=== PATIENT | male | born 1940 | race Caucasian/White ===

== ENCOUNTER 2024-03-09 22:46 | Inpatient (IN) | payer MEDICARE, OTHER, SELFPAY ==
[2024-03-09 16:15] VITALS: BP 144/71
[2024-03-09 16:59] LABS: % Basophils 0.3 % (0-2); % Eosinophils 0.5 % (0-6); % Immature Granulocytes 0.4 % (0-0.5); % Lymphocytes 8.1 % (20.5-51.1); % Monocytes 4.3 % (1.7-9.3); % Neutrophils 86.4 % (42.2-75.2); Absolute Eosinophils 0.1 10^3/uL (0-0.7); Absolute Immature Granulocytes 0.1 10^3/uL (0-0.05); Absolute Lymphocytes 0.9 10^3/uL (1.2-3.4); Absolute Monocytes 0.5 10^3/uL (0.1-0.6); Absolute Neutrophils 9.9 10^3/uL (1.4-6.5); Hematocrit 36.2 % (39.0-52.0); Hemoglobin 12.6 g/dL (13.0-18.0); Mean Corp Hgb Conc. 34.8 g/dL (33.0-37.0); Mean Corpuscular Hgb 32.7 pg (27.0-31.0); Mean Platelet Volume 11.1 fL (7.4-10.4); Nucleated Red Blood Cells % 0 % (-); Platelet Count 155 10^3/uL (130-400); Red Blood Cell Count 3.85 10^6/uL (4.70-6.10); Red Cell Dist. Width 13.6 % (11.5-14.5); White Blood Cell Count 11.5 10^3/uL (4.8-10.8)
[2024-03-09 17:05] LABS: COVID-19 Antigen Negative (Negative)
[2024-03-09 17:22] LABS: Troponin I < 0.012 ng/ml
[2024-03-09 17:37] LABS: ALT (SGPT) < 10 U/L (0-50); AST (SGOT) 35 U/L (17-59); Albumin 3.8 g/dl (3.5-5.0); Alkaline Phosphatase 116 U/L (38-126); Blood Urea Nitrogen 25 mg/dl (9-20); Carbon Dioxide 27 mmol/L (22-30); Chloride 102 mmol/L (98-107); Glucose 152 mg/dl (70-99); Potassium 3.5 mmol/L (3.5-5.1); Sodium 139 mmol/L (135-145); Total Bilirubin 0.9 mg/dl (0.2-1.3); Total Protein 6.6 g/dl (6.3-8.2); eGFR 45.34
[2024-03-09 19:20] VITALS: BMI 24.6
[2024-03-09 19:28] VITALS: BP 162/71
--- NOTE | 2024-03-09 19:42 | ED.GENMED ---
History of Present Illness
General
Chief Complaint: Cold/Flu/URI Symptoms
Source: patient and spouse
Exam Limitations: none
Time Seen by Provider: 03/09/24 19:24
Nursing documentation reviewed up to this point in time: agreed with
History of Present Illness
History of Present Illness:
83-year-old male cough congestion fever fatigue for a month decreased p.o. intake [facility] today he had increased symptoms of brought to the ER no vomiting, no abdominal pain, states he has a
history of COPD states has had thick productive sputum
Past History
Past History
ED Past Medical History: COPD, GERD, HTN, Hypercholesterolemia, Other (Parkinson's, osteoarthritis, obstructive sleep apnea, tinnitus, chronic kidney disease) and Other (chronic bronchitis, mitral valve regurg)
ED Past Surgical History: Appendectomy, Orthopedic (bilateral hip replacements 2011) and Other (herniorrhaphy, cataract extraction, lumbar epidural steroid injection, cystoscopy)
Social History
Tobacco: Former smoker
Alcohol: Occasional
Drug: None
Personal: Other (Significant other Common law marrage)
Living: with family
Employment: Employed
Family History
Family History: Other (reviewed and non-contributory)
Review of Systems
Review of Systems
All Other Systems: Not applicable
Constitutional: Reports fever and fatigue
Respiratory: Reports cough and trouble breathing
Cardiac: Reports no symptoms
: Reports no symptoms
Musculoskeletal: Reports no symptoms
Phy Exam
Physical Exam
Physical Exam:
Physical Exam
General: Elderly male mild distress low-grade fever cough
Neck: Lips are dry
Heart: Regular
Lungs: Rhonchi right greater than
Abdomen: Not
Neuro: alert and oriented. no focal neurological deficits
Skin: no rash
Psychiatric: well kept. interactive and cooperative
Extremities: No calf pain noted
Course
Orders/Labs/Results
Orders:
Orders
03/09/24 16:19
ECG [Electrocardiogram (*1)] Urgent
Reason for Study: Chest Pain
EKG- Treatment ONCE
03/09/24 16:25
Complete Blood Count/With Diff Urgent
Comprehensive Metabolic Panel Urgent
Troponin I Urgent
Blood Culture Urgent
BHARAT Source: Blood/Venous
Specimen Description:
Date Specimen was Collected: 03/09/24
Time Specimen was Collected: 16:19
Influenza A+B Rapid Molecular Urgent
BHARAT Source: Nasal Swab
Specimen Description:
Date Specimen was Collected: 03/09/24
Time Specimen was Collected: 16:19
03/09/24 16:27
COVID-19 Antigen Urgent
Source: Nasal Swab
03/09/24 19:28
Ipratropium/Albuterol Sulfate [Duoneb] 3 ml INH R NOW STA
03/09/24 19:29
0.9% Sodium Chloride 1000 ml [Nss] 1,000 ml IV BOLUS
Acetaminophen [Tylenol] 650 mg PO NOW STA
Dexamethasone Sod Phosphate [Decadron] 10 mg IV NOW STA
CR Chest - 2 Views Urgent
Comment:
Reason For Exam: sob
03/09/24 20:51
CefTRIAXone [Rocephin] 1,000 mg IV NOW STA
Abnormal Lab Results
03/09/24
16:25
WBC 11.5 H 10^3/uL
(4.8-10.8)
RBC 3.85 L 10^6/uL
(4.70-6.10)
Hgb 12.6 L g/dL
(13.0-18.0)
Hct 36.2 L %
(39.0-52.0)
MCH 32.7 H pg
(27.0-31.0)
MPV 11.1 H fL
(7.4-10.4)
Abs Immat Gran (auto) 0.1 H 10^3/uL
(0-0.05)
Absolute Neuts (auto) 9.9 H 10^3/uL
(1.4-6.5)
Absolute Lymphs (auto) 0.9 L 10^3/uL
(1.2-3.4)
Neutrophils % 86.4 H %
(42.2-75.2)
Lymphocytes % 8.1 L %
(20.5-51.1)
BUN 25 H mg/dl
(9-20)
Creatinine 1.5 H mg/dL
(0.7-1.3)
Glucose 152 H mg/dl
(70-99)
03/09/24 16:25
03/09/24 16:25
Vital Signs
Initial and Last Documented VS:
Initial Vital Signs
Temp Pulse Resp BP Pulse Ox
100.1 F 94 20 144/71 99
03/09/24 16:15 03/09/24 16:15 03/09/24 16:15 03/09/24 16:15 03/09/24 16:15
Last Documented Vital Signs
Temp Pulse Resp BP Pulse Ox
100.1 F 82 14 162/71 97
03/09/24 16:15 03/09/24 19:45 03/09/24 19:45 03/09/24 19:28 03/09/24 19:45
MDM/Problems Addressed
Differential Diagnosis Includes:
Pneumonia bronchitis aspiration viral syndrome
MDM/Problems Addressed:
Cough shortness of breath fever
Chronic conditions affecting care: COPD and Neurological disorder
Acute Exacerbation and/or Progression of Chronic Illness: COPD and Neurological disorder
*Radiology
Radiology exam reviewed: preliminary read by ED provider
*Pulse Oximetry
Patient hypoxic: no
*EKG
Interpreted by ED Provider?: Yes
Interpretation: abnormal
Comparison EKG: no comparison EKG present
Heart Rate: 88
Rate: normal
Rhythm: sinus
Ischemia: non-specific ST changes
*Teller Coordinator Interpretation
Rate: tachycardiac
Interpretation: abnormal
Heart Rate: 110
Rhythm: sinus
*Critical Care Note
Total Time (30-74mins, 75-104mins- exclusive of procedures): Not Applicable
Update Note
Update Note:
9 PM chest x-ray noted labs noted patient states he is feeling better, review labs and chest x-ray with him insisted that he be admitted she is concerned is not getting care that he needs at his facility
ED Attending Note
-
Portions of this chart may have been created with voice recognition software.� Occasional wrong word or��sound alike� substitutions may have occurred due to the inherent limitations of voice recognition software.
Discharge Plan
Departure
Patient Disposition: Admit
Date of Disposition: 03/09/24
Time of Disposition: 21:05
Admit to: Med/Surg
Presentation/result/management discussed w/ accepting MD/DO: Hospitalist
Patient with high blood pressure during this ER visit?: No
Condition: Good
Discharge Problem:
COPD exacerbation
Prescriptions:
No Action
quetiapine 25 MG tablet
100 mg PO HS
quetiapine 25 MG tablet
25 mg PO DAILY
sertraline 50 MG tablet
50 mg PO DAILY
fludrocortisone 0.1 MG tablet
0.1 mg PO DAILY Qty: 30 0RF
acetaminophen 325 mg Tablet
650 mg PO Q4HPRN PRN (Reason: mild pain/fever)
permethrin 5 % Cream
1 applic TOPICAL TU@1830
magnesium hydroxide 400 mg/5 mL Suspension
2,400 mg PO DAILYPRN PRN (Reason: constipation)
tamsulosin 0.4 mg Capsule
0.8 mg PO QPM
bisacodyl [Dulcolax (bisacodyl)] 10 mg Suppository
10 mg [place] DAILY PRN (Reason: if no bm aftr mom)
fluticasone propionate 50 mcg/actuation [place],Suspension
1 spray INTRANASAL BID
rivastigmine tartrate 3 mg Capsule
3 mg PO BID
carbidopa-levodopa 25-100 mg Tablet Extended Release
1 tab PO QID
polyethylene glycol 3350 17 GRAMS powder in packet
17 grams PO QPM
prednisone 20 mg Tablet
40 mg PO DAILY 5 Days Qty: 10 0RF
Referrals:
UNKNOWN - PT DOES,NOT KNOW [Family Provider] -
Interventions
Interventions:
*Risk Screen - Suicide Last Done: 03/09/24 19:20
*General Assessment Last Done: 03/09/24 19:20
ED- Fall Risk Assessment Last Done: 03/09/24 19:20
*ED COVID-19 Vaccine History Last Done: 03/09/24 19:20
ED- Pulmonary Assessment Last Done: 03/09/24 19:20
Discharge Date and Time
Print Language: ALBANIAN
[2024-03-09] MEDS: DECADRON 10 MG IV (19:51)
[2024-03-09] MEDS: TYLENOL 650 MG PO (19:51)
[2024-03-09] MEDS: DUONEB 3 ML INH (19:51)
[2024-03-09] MEDS: NSS 1000 IV (19:52)
[2024-03-09 20:00] VITALS: BP 143/88
[2024-03-09 21:01] VITALS: BP 138/55
[2024-03-09] MEDS: ROCEPHIN 1000 MG IV (21:33)
[2024-03-09] MEDS: VIBRAMYCIN 100 MG PO (21:33)
--- NOTE | 2024-03-09 21:58 | HPS.HSE ---
Family Physician
-
Family Physician: NOT KNOW UNKNOWN - PT DOES
Chief Complaint
-
cough and congestion , poor POs
History of Present Illness
I could not get any information from the patient as he has dementia
Information gathered by chart review and speaking with the ER staff.
83M NH Res, HX Dementia , COPD, CKD3, HTN seen at ER for evalaution of cough and congestion:
HX mainly from
- concerns with fatigue, poor PO for few weeks at NH
- also she noted worsening cough and congestion
- thick productive sputum per spouse
- T 100 at ER , not tachypnic
- 2 episdoe of POx 8s but improved to 90s on RA
- POS rochi in both lungs Rt > Lt
At ER
- DuoNeb x1
- IV Decdron 10 mg
- IV CFTX and PO Doxy
Medical History
Past Medical History
Past Medical History: Reports Other
Additional Past Medical History:
GERD, hypertension, hyperlipidemia, sleep apnea, CKD, mitral regurgitation, arthritis, parkinson,
Past Surgical History: Reports Other
Additional Past Surgical History:
b/l hip replacement
appendectomy
Social History
Tobacco: Former Smoker
Alcohol: None
Drug: None
Living: Shelter
Family History
Family History: Not pertinent
Allergies / Home Medications
Allergies reflects when Allergies were last updated in [employer].
Home Medications with original date entered in [employer]
Allergy/Medication List:
Allergies
Allergy/AdvReac Type Severity Reaction Status Date / Time
No Known Allergies Allergy Verified 03/10/22 12:13
Home Medications
quetiapine 25 mg tablet 25 mg PO DAILY Mental Health/Anxiety 12/07/21
quetiapine 25 mg tablet 100 mg PO HS Mental Health/Anxiety 12/07/21
sertraline 50 mg tablet 50 mg PO DAILY Mental Health/Anxiety 12/07/21
fludrocortisone 0.1 mg tablet 0.1 mg PO DAILY #30 tabs 02/02/22
acetaminophen 325 mg tablet 650 mg PO Q4HPRN PRN mild pain/fever 08/27/23
bisacodyl 10 mg rectal suppository (Dulcolax (bisacodyl)) 10 mg [place] DAILY PRN if no bm aftr mom 08/27/23
carbidopa ER 25 mg-levodopa 100 mg tablet,extended release 1 tab PO QID 08/27/23
fluticasone propionate 50 mcg/actuation nasal spray,suspension 1 spray intranasal BID 08/27/23
magnesium hydroxide 400 mg/5 mL oral suspension 2,400 mg PO DAILYPRN PRN constipation 08/27/23
permethrin 5 % topical cream 1 applic topical TU@1830 08/27/23
polyethylene glycol 3350 17 gram oral powder packet 17 grams PO QPM 08/27/23
rivastigmine tartrate 3 mg capsule 3 mg PO BID 08/27/23
tamsulosin 0.4 mg capsule 0.8 mg PO QPM 08/27/23
Review of Systems
-
Constitutional: Reports No Symptoms
EENT: Reports No Symptoms
Respiratory: Reports Cough and Other (congestion and thick productive sputum )
Cardiac: Reports No Symptoms
Abdomen/GI: Reports No Symptoms
: Reports No Symptoms
Musculoskeletal: Reports No Symptoms
Skin: Reports Rash
Neurological: Reports No Symptoms
Endocrine: Reports No Symptoms
Hematologic/Lymphatic: Reports No Symptoms
Psych: Reports No Symptoms
Physical Exam
Vital Signs
Vital Signs
Temp Pulse Resp BP Pulse Ox
100.1 F 86 18 138/55 97
03/09/24 16:15 03/09/24 21:30 03/09/24 21:30 03/09/24 21:01 03/09/24 21:01
Physical Exam
General: Well Developed, Well Nourished and No Apparent Distress
HEENT: NormoCephalic and Atraumatic; No Moist mucous membranes (dry lipss )
Respiratory: Other (reduced symmetric air entry but no additiona BS on my exam )
Cardiac: S1/S2 and Regular Rhythm; No Murmur or Rub
GI: Soft, Non Tender, Non Distended and Normal Bowel Sounds; No Organomegaly
Rectal: Deferred by Provider
Musculoskeletal: No Clubbing, No Cyanosis and No Edema
Skin: Rash (diffuse maculo papular rash)
Neuro: Awake, Alert and Nonfocal/grossly intact
Psych: Calm and Confused
Laboratory Results
-
03/09/24 16:25
03/09/24 16:25
Laboratory Results
Total Bilirubin 0.9 mg/dl (0.2-1.3) 03/09/24 16:25
AST 35 U/L (17-59) 03/09/24 16:25
ALT < 10 U/L (0-50) 03/09/24 16:25
Alkaline Phosphatase 116 U/L (38-126) 03/09/24 16:25
Troponin I < 0.012 ng/ml 03/09/24 16:25
Data Reviewed
-
Diagnostic Radiology: Report Reviewed by me
Medical Tests (Nuc Med, Echo, EKG etc): Report Reviewed by me
Lab Data: Labs Reviewed by me
Old Records: Reviewed
Impression/Plan
-
Reviewed VS:T 100.1 RR 20s POx 98, 82,97 on RA
Data
WCC 11.5
Hgb 12.6
Cr 1.5 - baseline Cr 1.1
eGFR 45
NEG TPNI
NEG Covid NEG Flu A & B
BCx sent
CXR : No acute cardiopulmonary process.
EKG
NORMAL SINUS RHYTHM
NONSPECIFIC ST AND T WAVE ABNORMALITY
ABNORMAL ECG
WHEN COMPARED WITH ECG OF 25-DONTRELL-2022 12:55,
NONSPECIFIC T WAVE ABNORMALITY NOW EVIDENT IN LATERAL LEADS
Last hospitalist admission: 08/27 - 08/29/23 PDX: Altered mental status likely secondary to worsening of dementia
ASSESSMENT & PLAN
Pending Rx reconciliation
low grade fever with leucocytosis - acute viral vs bacterial infection - unclear source
- NEG Covid, NEG flu, NEG CXR
- check PCT
- check UA
HX COPD suspect Flare with episode of hypoxia
Decreased symmetric AE but not wheezy or rhonchi on judicial administrative assistant exam
- NEG CXR
- Hold ABx till PCT available
- IV Decadron 4 mg q12h
- Duo Neg qid and PRN
- Keep POx > 94
Weakens and general debility ? deconditioning vs progressive Parkinson dz
HX Parkinson dz with dementia
Chronic Ambulatory dysfunction
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
- PT/OT
- on rivastigmine
- carbidopa-levodopa continued
Chronic Mood disorder
- on Seroquel, sertraline
BPH
- on Flomax
DVT Px: LMWH
Code: DNR confirmed by spouse at bed side
IP MS
[2024-03-09 22:00] VITALS: BP 134/84
[2024-03-09 22:48] LABS: Procalcitonin 0.68 ng/ml (0.0-0.25)
[2024-03-09 23:00] VITALS: BP 151/66
[2024-03-10] VITALS (9 sets, daily range): BP systolic 115–179; BP diastolic 55–82; PULSE 80; O2SAT 98; BMI 24.2
--- NOTE | 2024-03-10 00:20 | PTCARENOTE ---
Received patient from ED into room 0. at bedside. Patient resting comfortably in bed, asleep. answered admission questions. Pt confused/forgetful. Bed alarm initiated. Rhonchi auscultated in b/l lungs. See assessment. Call marcus within
reach, safe environment maintained.
[2024-03-10] MEDS: DUONEB 3 ML INH ×4 (07:32→19:18)
[2024-03-10] MEDS: EXELON 3 MG PO ×2 (08:23→21:01)
[2024-03-10] MEDS: SEROQUEL 25 MG PO (08:23)
[2024-03-10] MEDS: SINEMET CR 25-100 (EXTENDED RELEASE) 1 TABLET PO ×4 (08:23→21:01)
[2024-03-10] MEDS: DECADRON 4 MG IV (08:24)
[2024-03-10] MEDS: ZOLOFT 50 MG PO (08:24)
[2024-03-10] MEDS: FLORINEF 0.100000000000000006 MG PO (08:24)
--- NOTE | 2024-03-10 09:30 | CM ---
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 The patient resides at [facility] and is wheelchair bound. Patient requires assistance with ADLs. CM continues to be
available to patient/family and is monitoring medical plan for needs at discharge.
Plan: Discharge back to [facility] when medically stable.
--- NOTE | 2024-03-10 13:46 | W.PN.HOSP.TC ---
Today's Communication/Plan
-
Check UA and CX
Emp CTX
Assessment / Plan
Assessment / Plan
Febrile illness with leucocytosis - unclear source
- NEG Covid, NEG flu, NEG CXR
- patient with a lower symptoms of incontinence, frequency, dysuria
-Rule out UTI.
-Start on empirical ceftriaxone.
Possible TAIWO
Elevated creatinine of 1.5 from baseline of 1.1 from last year noted. Treat infection ,hydrate and follow.
Check bladder scan.
US renal if no improvement
COPD with no flare.
Patient denies any shortness of breath. He does not have a cough. Is not actively bronchospastic this morning. No evidence of flare. Stop steroids.
HX Parkinson dz with dementia
Chronic Ambulatory dysfunction
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
- PT/OT
- on rivastigmine
- carbidopa-levodopa continued
Chronic Mood disorder
- on Seroquel, sertraline
BPH
- on Flomax
DVT Px: LMWH
Code: DNR
DW RN
Total time spent on today's encounter was 52 minutes which included time spent in counseling the patient/family regarding diagnosis and treatment plan as listed above, goals of care, and symptom management. Case was discussed with nursing staff,
specialists . All labs and imaging personally reviewed by me. Remainder the time spent in detailed review of previous records, lab data, imaging, and other medical provider documentation.
Anticipated Discharge: 24 - 48 hours
Subjective/Interval History
-
Date of Service: March 10, 2024
Patient complains of chronic incontinence and needing to wear diapers.
He also feels some dysuria now. He also has some frequency of urine every 2 hours
Objective Data
-
Vital Signs:
Vital Signs
Temp Pulse Resp BP Pulse Ox
98.2 F 76 16 115/77 97
06/25/24 07:40 03/10/24 11:23 03/10/24 11:23 03/10/24 10:33 03/10/24 11:23
Review of Systems
-
Constitutional: Denies Fever
EENT: Denies Sore Throat
Respiratory: Denies Cough or Trouble Breathing
Cardiac: Denies Chest Pain
Abdomen/GI: Denies Abdominal Pain, Nausea or Vomiting
Neuro: Denies Dizzy
Physical Exam
-
General: No Apparent Distress
HEENT: Moist Mucous Membranes
Respiratory: Clear to Auscultation
Cardiac: Regular Rhythm and S1/S2
GI: Soft
Neuro: AO x 3 and No Motor Deficits
Psych: Calm; Negative Agitated
Data Reviewed
-
Labs: Labs Reviewed by me
[2024-03-10] MEDS: NSS 1000 IV (14:03)
[2024-03-10 14:12] LABS: Urine Albumin Trace (Neg - Trace); Urine Bilirubin Negative (Negative); Urine Character Clear (Clear); Urine Color Yellow; Urine Glucose 1+ (Negative); Urine Ketone Trace (Negative); Urine Leukocyte 2+ (Negative); Urine Nitrite Negative (Negative); Urine Occult Blood 1+ (Negative); Urine Urobilinogen Negative (Neg - 1+)
[2024-03-10 15:07] LABS: Urine Bacteria Moderate (Negative); Urine Red Blood Cell 0-2 /HPF (0-2); Urine White Cell 50-60 /HPF (0-5)
[2024-03-10] MEDS: LOVENOX 40 MG SC (16:59)
[2024-03-10] MEDS: FLOMAX 0.800000000000000044 MG PO (17:00)
[2024-03-10] MEDS: STERILE WATER FOR INJECTION 10 ML IV (21:01)
[2024-03-10] MEDS: SEROQUEL 100 MG PO (21:01)
[2024-03-10] MEDS: ROCEPHIN 1000 MG IV (21:02)
[2024-03-11] MEDS: NSS 1000 IV (02:16)
[2024-03-11 06:00] VITALS: BMI 24.5
[2024-03-11 06:39] LABS: Hematocrit 30.9 % (39.0-52.0); Hemoglobin 10.8 g/dL (13.0-18.0); Mean Corpuscular Volume 94.5 fL (80.0-94.0); Mean Platelet Volume 11.3 fL (7.4-10.4); Platelet Count 142 10^3/uL (130-400); Red Blood Cell Count 3.27 10^6/uL (4.70-6.10); Red Cell Dist. Width 13.6 % (11.5-14.5); White Blood Cell Count 11.2 10^3/uL (4.8-10.8)
[2024-03-11 07:14] LABS: Blood Urea Nitrogen 28 mg/dl (9-20); Calcium 8.7 mg/dl (8.4-10.2); Carbon Dioxide 23 mmol/L (22-30); Chloride 109 mmol/L (98-107); Estimated Creatinine Clearance 49 ml/min; Glucose 106 mg/dl (70-99); Potassium 3.5 mmol/L (3.5-5.1); Sodium 138 mmol/L (135-145); eGFR > 60.00
[2024-03-11] MEDS: DUONEB 3 ML INH ×4 (07:33→19:30)
[2024-03-11 07:45] VITALS: BP 168/78
[2024-03-11] MEDS: EXELON 3 MG PO ×2 (08:46→20:11)
[2024-03-11] MEDS: FLORINEF 0.100000000000000006 MG PO (08:46)
[2024-03-11] MEDS: ZOLOFT 50 MG PO (08:46)
[2024-03-11] MEDS: SEROQUEL 25 MG PO (08:46)
[2024-03-11] MEDS: SINEMET CR 25-100 (EXTENDED RELEASE) 1 TABLET PO ×4 (08:46→22:30)
--- NOTE | 2024-03-11 11:35 | W.PN.HOSP.TC ---
Today's Communication/Plan
-
Continue ceftriaxone. Follow urine culture data.
Follow PT recs
Assessment / Plan
Assessment / Plan
Febrile illness with leucocytosis - suspected UTI
- NEG Covid, NEG flu, NEG CXR
- patient with a lower symptoms of incontinence, frequency, dysuria
- UA with pyuria
- Rule out UTI.
- Started on empirical ceftriaxone.
TAIWO
Elevated creatinine of 1.5 from baseline of 1.1 from last year noted.
No major bladder residuals noted. Improved creatinine to 1.0.
COPD with no flare.
Patient denies any shortness of breath. He does not have a cough. Is not actively bronchospastic this morning. No evidence of flare. Stop steroids.
HX Parkinson dz with dementia
Chronic Ambulatory dysfunction
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
- PT/OT
- on rivastigmine
- carbidopa-levodopa continued
Chronic Mood disorder
- on Seroquel, sertraline
BPH
- on Flomax
DVT Px: LMWH
Code: DNR
DW RN
Follow UCX and PT eval
DC planning
Anticipated Discharge: Within 24 hours
Subjective/Interval History
-
Date of Service: March 11, 2024
He feels better today.
Denies any dysuria. No fever or chills.
No nausea vomiting.
Objective Data
-
Labs:
Laboratory Results
03/11/24
06:17
WBC 11.2 H
Hgb 10.8 L
Hct 30.9 L
Plt Count 142
Sodium 138
Potassium 3.5
Chloride 109 H
Carbon Dioxide 23
BUN 28 H
Creatinine 1.0
Glucose 106 H
Calcium 8.7
Vital Signs:
Vital Signs
Temp Pulse Resp BP Pulse Ox
98.2 F 89 18 168/78 95
03/11/24 07:45 03/11/24 07:45 03/11/24 07:45 03/11/24 07:45 03/11/24 07:45
I&O
03/10/24 03/11/24 03/12/24
06:59 06:59 06:59
Intake Total 2380 / 2380
Output Total 50 / 50
Balance 2330 / 2330
Review of Systems
-
Respiratory: Denies Trouble Breathing
Cardiac: Denies Chest Pain
Neuro: Denies Dizzy
Physical Exam
-
General: No Apparent Distress
HEENT: Moist Mucous Membranes
Respiratory: Clear to Auscultation
Cardiac: Regular Rhythm and S1/S2
Neuro: Awake, Alert and Oriented
Psych: Calm
Data Reviewed
-
Labs: Labs Reviewed by me
[2024-03-11 12:23] VITALS: BP 185/86; PULSE 73
--- NOTE | 2024-03-11 13:35 | CM ---
Reviewed the chart notes. CM continues to be available to patient/family and is monitoring medical plan for needs at discharge.
Plan: Discharge back to [facility] when medically stable.
[2024-03-11 15:41] VITALS: BP 116/67
--- NOTE | 2024-03-11 16:13 | CM ---
Reviewed the chart notes and spoke with the patient and his spouse at the bedside. IMM signed and placed on chart. CM continues to be available to patient/family and is monitoring medical plan for needs at discharge.
Plan: Discharge back to [facility] when medically stable. No precert required.
[2024-03-11] MEDS: LOVENOX 40 MG SC (17:33)
[2024-03-11] MEDS: FLOMAX 0.800000000000000044 MG PO (17:33)
[2024-03-11] MEDS: STERILE WATER FOR INJECTION 10 ML IV (22:30)
[2024-03-11] MEDS: SEROQUEL 100 MG PO (22:30)
[2024-03-11] MEDS: ROCEPHIN 1000 MG IV (22:33)
[2024-03-11 23:46] VITALS: BP 132/75
[2024-03-12 05:01] VITALS: BMI 23.9
[2024-03-12] MEDS: DUONEB 3 ML INH ×4 (08:14→20:26)
[2024-03-12 08:17] VITALS: BP 144/83
[2024-03-12] MEDS: FLORINEF 0.100000000000000006 MG PO (08:41)
[2024-03-12] MEDS: SEROQUEL 25 MG PO (08:41)
[2024-03-12] MEDS: SINEMET CR 25-100 (EXTENDED RELEASE) 1 TABLET PO ×4 (08:41→21:18)
[2024-03-12] MEDS: EXELON 3 MG PO ×2 (08:41→19:30)
[2024-03-12] MEDS: ZOLOFT 50 MG PO (08:41)
--- NOTE | 2024-03-12 14:19 | CM ---
Reviewed the chart notes. CM continues to be available to patient/family and is monitoring medical plan for needs at discharge.
Plan: Discharge back to [facility] when medically stable. No precert required.
Call report to: [phone]
Fax report to: [phone]
Medical necessity and transport forms on chart.
--- NOTE | 2024-03-12 15:04 | W.PN.HOSP.TC ---
Today's Communication/Plan
-
Rpt UA and DC
Assessment / Plan
Assessment / Plan
Febrile illness with leucocytosis - suspected UTI
- NEG Covid, NEG flu, NEG CXR
- patient with a lower symptoms of incontinence, frequency, dysuria
- UA with pyuria
- UCX interestingly shows no growth.
- Based on story was concerned about UTI.
- Rpt UA and if resolved pyuria will tx as possible UTI for 5 days.
TAIWO
Elevated creatinine of 1.5 from baseline of 1.1 from last year noted.
No major bladder residuals noted. Improved creatinine to 1.0.
COPD with no flare.
Patient denies any shortness of breath. He does not have a cough. Is not actively bronchospastic this morning. No evidence of flare. Stop steroids.
HX Parkinson dz with dementia
Chronic Ambulatory dysfunction
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
- PT/OT
- on rivastigmine
- carbidopa-levodopa continued
Chronic Mood disorder
- on Seroquel, sertraline
BPH
- on Flomax
DVT Px: LMWH
Code: DNR
DW RN
PT recs rehab
Check UA and DC
Anticipated Discharge: Within 24 hours
Subjective/Interval History
-
Date of Service: March 12, 2024
complains of some cough. No phlegm or shortness of breath. Apparently was a bit confused this morning but okay now.
Objective Data
-
Vital Signs:
Vital Signs
Temp Pulse Resp BP Pulse Ox
98.1 F 73 16 144/83 96
03/12/24 08:17 03/12/24 11:37 03/12/24 11:37 03/12/24 08:17 03/12/24 11:37
I&O
03/11/24 03/12/24 03/13/24
06:59 06:59 06:59
Intake Total 2380 / 2380 1600 / 1600
Output Total 50 / 50
Balance 2330 / 2330 1599 / 1600
Review of Systems
-
Unable to obtain full review of systems at this time due to: Other (He is alert and oriented to place, day of the week, month n the ER.)
Constitutional: Denies Fever
Respiratory: Denies Trouble Breathing
Cardiac: Denies Chest Pain
Abdomen/GI: Denies Abdominal Pain, Nausea or Vomiting
Genitourinary: Denies Dysuria or Frequency
Neuro: Denies Dizzy
Physical Exam
-
General: No Apparent Distress
HEENT: Moist Mucous Membranes
Respiratory: Clear to Auscultation
Cardiac: Regular Rhythm and S1/S2
GI: Soft
Neuro: AO x 3 and No Motor Deficits; Negative Slurred Speech or Facial Droop
Psych: Calm
Data Reviewed
-
Labs: Labs Reviewed by me
[2024-03-12 15:47] VITALS: BP 155/79
--- NOTE | 2024-03-12 16:01 | PN.CDI ---
CDI
- -
CDI:
Physician Documentation Request
Admit Date: 03/09/24 22:46
Dear Doctor Vidal,
Patient progress notes state 'Postural hypotension secondary autonomic neuropathy due to Parkinson disease'
Patient takes and has received Fludrocortisone.
Please clarify regarding the diagnosis associated with the orthostatic hypotension:
Neurogenic orthostatic hypotension
Orthostatic hypotension only
Other
Use of terms such as suspected, likely, concern for, or probable (associated with a specific diagnosis that is being evaluated, monitored, or treated as if it exists) are acceptable and can be coded in the inpatient setting, when documented at the
time of discharge.
Thank you,
Krystal Ludwig RN, BSN
CDI Specialist
tiger text
Please use your independent medical judgment in providing your response.
[2024-03-12 16:02] LABS: Urine Albumin Negative (Neg - Trace); Urine Bilirubin Negative (Negative); Urine Character Clear (Clear); Urine Color Yellow; Urine Glucose Negative (Negative); Urine Ketone Negative (Negative); Urine Leukocyte 1+ (Negative); Urine Nitrite Negative (Negative); Urine Occult Blood Negative (Negative); Urine Specific Gravity 1.015 (<1.030); Urine Urobilinogen Negative (Neg - 1+)
[2024-03-12 16:13] LABS: Urine Red Blood Cell 0-2 /HPF (0-2); Urine White Cell 16-20 /HPF (0-5)
[2024-03-12 16:14] LABS: Urine Bacteria Moderate (Negative)
[2024-03-12] MEDS: LOVENOX 40 MG SC (17:16)
[2024-03-12] MEDS: FLOMAX 0.800000000000000044 MG PO (17:16)
[2024-03-12] MEDS: SEROQUEL 100 MG PO (21:18)
[2024-03-12] MEDS: ROCEPHIN 1000 MG IV (21:18)
[2024-03-12] MEDS: STERILE WATER FOR INJECTION 10 ML IV (21:19)
[2024-03-12 23:20] VITALS: BP 137/68
[2024-03-13 06:00] VITALS: BMI 24.4
[2024-03-13 07:50] VITALS: BP 172/97
[2024-03-13] MEDS: DUONEB 3 ML INH (08:17)
[2024-03-13 08:56] LABS: Hemoglobin 11.8 g/dL (13.0-18.0); Mean Corp Hgb Conc. 34.7 g/dL (33.0-37.0); Mean Corpuscular Hgb 32.5 pg (27.0-31.0); Mean Corpuscular Volume 93.7 fL (80.0-94.0); Mean Platelet Volume 10.9 fL (7.4-10.4); Platelet Count 163 10^3/uL (130-400); Red Blood Cell Count 3.63 10^6/uL (4.70-6.10); Red Cell Dist. Width 13.9 % (11.5-14.5); White Blood Cell Count 9.2 10^3/uL (4.8-10.8)
[2024-03-13] MEDS: EXELON 3 MG PO (09:08)
[2024-03-13] MEDS: SINEMET CR 25-100 (EXTENDED RELEASE) 1 TABLET PO ×3 (09:08→17:21)
[2024-03-13] MEDS: FLORINEF 0.100000000000000006 MG PO (09:08)
[2024-03-13] MEDS: ZOLOFT 50 MG PO (09:08)
[2024-03-13] MEDS: SEROQUEL 25 MG PO (09:08)
[2024-03-13] MEDS: DUONEB INH (11:26)
[2024-03-13 11:34] VITALS: BP 149/66
[2024-03-13 13:13] VITALS: BP 161/68; PULSE 69; O2SAT 96
--- NOTE | 2024-03-13 13:50 | W.PN.HOSP.TC ---
Addendum entered and electronically signed by Freod Drake MD 03/13/24 15:39:
Orthostatic hypotension only
Original Note:
Today's Communication/Plan
-
dc
Assessment / Plan
Assessment / Plan
Febrile illness with leucocytosis - suspected UTI due to symptoms and pyruria .
-Patient currently without symptoms and normalized white count. Clinically is well improved. Repeat urinalysis shows improved pyuria. Cannot rule out UTI. Will finish a course of antibiotic to cover as well as upper respiratory tract.
- with new interval hx of sinus symptoms and improvement make me think possibly component of sinusitis
- NEG Covid, NEG flu, NEG CXR
- patient with a lower symptoms of incontinence, frequency, dysuria
- UA with pyuria
- UCX interestingly shows no growth.
TAIWO
Elevated creatinine of 1.5 from baseline of 1.1 from last year noted.
No major bladder residuals noted. Improved creatinine to 1.0.
COPD with no flare.
Patient denies any shortness of breath. He does not have a cough now. Is not actively bronchospastic this morning. No evidence of flare.
HX Parkinson dz with dementia
Chronic Ambulatory dysfunction
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
- PT/OT
- on rivastigmine
- carbidopa-levodopa continued
Chronic Mood disorder
- on Seroquel, sertraline
BPH
- on Flomax
DVT Px: LMWH
Code: DNR
DW RN
PT recs rehab. Patient apparently is a long-term resident of [facility].
Medically stable for DC
Total time of discharge 32 minutes
Anticipated Discharge: Today
Subjective/Interval History
-
Date of Service: March 13, 2024
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
She feels him back at his baseline.
Other urinary symptoms she thinks is other significant symptom before coming and was runny nose and cough for the last 4 weeks. Ever since he is in the hospital she is seeing improvement with his runny nose and cough.
He has a history of COPD. No prior history of chronic sinusitis.
Objective Data
-
Labs:
Laboratory Results
03/13/24
08:29
WBC 9.2
Hgb 11.8 L
Hct 34.0 L
Plt Count 163
Vital Signs:
Vital Signs
Temp Pulse Resp BP Pulse Ox
97.8 F 73 18 149/66 98
03/13/24 11:34 03/13/24 11:34 03/13/24 11:34 03/13/24 11:34 03/13/24 11:34
I&O
03/12/24 03/13/24 03/14/24
06:59 06:59 06:59
Intake Total 1600 / 1600 1050 / 1050
Output Total 60 / 60
Balance 1600 / 1600 990 / 990
Review of Systems
-
Unable to obtain full review of systems at this time due to: Other (cognitive impairment)
Constitutional: Denies Fever or Chills
EENT: Denies Sore Throat
Respiratory: Denies Cough or Trouble Breathing
Cardiac: Denies Chest Pain
Abdomen/GI: Denies Abdominal Pain, Nausea or Vomiting
Neuro: Denies Dizzy
Physical Exam
-
General: No Apparent Distress
HEENT: Moist Mucous Membranes
Respiratory: Negative Wheezes or Crackles
Cardiac: Regular Rhythm and S1/S2
GI: Soft, Nontender, Nondistended and Normal Bowel Sounds
Neuro: Awake, Alert and Oriented; Negative Tremors
Psych: Calm
Data Reviewed
-
Labs: Labs Reviewed by me
--- NOTE | 2024-03-13 13:58 | W.DS.TRANS ---
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
-
Discharge Instructions:
Discharge Diagnosis/Procedures UTI+_ Sinusitis
Diet Regular
Activity As tolerated
Driving Restrictions No driving
Other Services PT,OT
Instructions:
Stand-Alone Forms:
Changes to Home Medications: Yes
Discharge Medications:
DC Medications w/original date entered in [employer]
quetiapine 25 mg tablet 25 mg PO DAILY Mental Health/Anxiety 12/07/21
quetiapine 25 mg tablet 100 mg PO HS Mental Health/Anxiety 12/07/21
sertraline 50 mg tablet 50 mg PO DAILY Mental Health/Anxiety 12/07/21
fludrocortisone 0.1 mg tablet 0.1 mg PO DAILY #30 tabs 02/02/22
acetaminophen 325 mg tablet 650 mg PO Q4HPRN PRN mild pain/fever 08/27/23
bisacodyl 10 mg rectal suppository (Dulcolax (bisacodyl)) 10 mg HI DAILY PRN if no bm aftr mom 08/27/23
carbidopa ER 25 mg-levodopa 100 mg tablet,extended release 1 tab PO QID 08/27/23
fluticasone propionate 50 mcg/actuation nasal spray,suspension 1 spray intranasal BID 08/27/23
magnesium hydroxide 400 mg/5 mL oral suspension 2,400 mg PO DAILYPRN PRN constipation 08/27/23
permethrin 5 % topical cream 1 applic topical TU@1830 08/27/23
polyethylene glycol 3350 17 gram oral powder packet 17 grams PO QPM 08/27/23
rivastigmine tartrate 3 mg capsule 3 mg PO BID 08/27/23
tamsulosin 0.4 mg capsule 0.8 mg PO QPM 08/27/23
prednisone 20 mg tablet 40 mg (2 x 20 mg) PO DAILY 5 days #10 tabs 08/29/23
cefuroxime axetil 500 mg tablet 500 mg PO BID #8 tabs 03/13/24
ipratropium 0.5 mg-albuterol 3 mg (2.5 mg base)/3 mL nebulization soln 3 ml inhalation Q8H PRN shortness of breath or wheezing #90 mL 03/13/24
Home Medication Changes
New medication-cefuroxime, DuoNeb as needed
Pending Results: No
--- NOTE | 2024-03-13 14:02 | CM ---
Reviewed the chart notes. CM continues to be available to patient/family and is monitoring medical plan for needs at discharge.
Plan: Discharge back to [facility]. No precert required.
Call report to: [phone]
Fax report to: [phone]
Medical necessity and transport forms on chart.
[2024-03-13 15:40] VITALS: BP 124/72
[2024-03-13] MEDS: FLOMAX 0.800000000000000044 MG PO (17:12)
[2024-03-13] MEDS: LOVENOX 40 MG SC (17:12)
== END 2024-03-13 17:43 | DRG 683 ==
LOC: 2 NORTH 22:46
PROVIDERS: Emergency Medicine; ADMITTING PHYSICIAN Internal Medicine; ATTENDING PHYSICIAN Internal Medicine; EMERGENCY PHYSICIAN Emergency Medicine
DX: N17.9 Acute kidney failure, unspecified (principal); N39.0 Urinary tract infection, site not specified; J44.9 Chronic obstructive pulmonary disease, unspecified; N18.30 Chronic kidney disease, stage 3 unspecified; I12.9 Hypertensive chronic kidney disease with stage 1 through stage 4 chronic kidney disease, or unspecified chronic kidney disease; K21.9 Gastro-esophageal reflux disease without esophagitis; I34.0 Nonrheumatic mitral (valve) insufficiency; I95.1 Orthostatic hypotension; M19.90 Unspecified osteoarthritis, unspecified site; G20.A1 Parkinson's disease without dyskinesia, without mention of fluctuations; F02.80 Dementia in other diseases classified elsewhere, unspecified severity, without behavioral disturbance, psychotic disturbance, mood disturbance, and anxiety; N40.0 Benign prostatic hyperplasia without lower urinary tract symptoms; F39 Unspecified mood [affective] disorder; Z66 Do not resuscitate; E78.00 Pure hypercholesterolemia, unspecified; G47.33 Obstructive sleep apnea (adult) (pediatric); Z11.52 Encounter for screening for COVID-19; Z79.899 Other long term (current) drug therapy; Z87.891 Personal history of nicotine dependence
CPT/HCPCS: 71046; 80048; 80053; 81003; 81015; 84145; 84484; 85025; 85027; 87040; 87070; 87086; 87502; 87811; 93005; 94640; 96361; 96374; 96375; 97110; 97116; 97162; 97166; 97530; 99285

== ENCOUNTER → 2024-03-23 10:59 | Outpatient (REF) | payer MEDICARE, OTHER, SELFPAY ==
[2024-03-23 11:42] LABS: % Basophils 0.7 % (0-2); % Eosinophils 2.7 % (0-6); % Immature Granulocytes 0.4 % (0-0.5); % Lymphocytes 43.2 % (20.5-51.1); % Monocytes 8.8 % (1.7-9.3); % Neutrophils 44.2 % (42.2-75.2); Absolute Basophils 0.1 10^3/uL (0-0.2); Absolute Eosinophils 0.2 10^3/uL (0-0.7); Absolute Monocytes 0.6 10^3/uL (0.1-0.6); Absolute Neutrophils 3.1 10^3/uL (1.4-6.5); Hematocrit 33.4 % (39.0-52.0); Hemoglobin 11.4 g/dL (13.0-18.0); Mean Corp Hgb Conc. 34.1 g/dL (33.0-37.0); Mean Corpuscular Hgb 32.4 pg (27.0-31.0); Mean Corpuscular Volume 94.9 fL (80.0-94.0); Mean Platelet Volume 10.9 fL (7.4-10.4); Nucleated Red Blood Cells % 0 % (-); Platelet Count 221 10^3/uL (130-400); Red Blood Cell Count 3.52 10^6/uL (4.70-6.10)
[2024-03-23 11:48] LABS: Blood Urea Nitrogen 19 mg/dl (9-20); Calcium 8.8 mg/dl (8.4-10.2); Carbon Dioxide 26 mmol/L (22-30); Chloride 105 mmol/L (98-107); Glucose 76 mg/dl (70-99); Potassium 3.6 mmol/L (3.5-5.1); Sodium 137 mmol/L (135-145); eGFR > 60.00
== END ==
LOC: OLABN 10:59
PROVIDERS: ATTENDING PHYSICIAN Student in an Organized Health Care Education/Training Program
DX: I10 Essential (primary) hypertension (principal); F06.0 Psychotic disorder with hallucinations due to known physiological condition
CPT/HCPCS: 36415; 80048; 85025

== ENCOUNTER → 2024-04-20 11:34 | Outpatient (REF) | payer MEDICARE, OTHER, SELFPAY ==
[2024-04-20 13:03] LABS: % Basophils 0.8 % (0-2); % Eosinophils 4.3 % (0-6); % Immature Granulocytes 0.2 % (0-0.5); % Lymphocytes 45.6 % (20.5-51.1); % Monocytes 9.4 % (1.7-9.3); % Neutrophils 39.7 % (42.2-75.2); Absolute Basophils 0.1 10^3/uL (0-0.2); Absolute Eosinophils 0.3 10^3/uL (0-0.7); Absolute Monocytes 0.6 10^3/uL (0.1-0.6); Absolute Neutrophils 2.6 10^3/uL (1.4-6.5); Hematocrit 36.3 % (39.0-52.0); Hemoglobin 12.6 g/dL (13.0-18.0); Mean Corp Hgb Conc. 34.7 g/dL (33.0-37.0); Mean Corpuscular Hgb 33.8 pg (27.0-31.0); Mean Corpuscular Volume 97.3 fL (80.0-94.0); Mean Platelet Volume 12.2 fL (7.4-10.4); Nucleated Red Blood Cells % 0 % (-); Platelet Count 140 10^3/uL (130-400); Red Blood Cell Count 3.73 10^6/uL (4.70-6.10); Red Cell Dist. Width 14.6 % (11.5-14.5); White Blood Cell Count 6.5 10^3/uL (4.8-10.8)
[2024-04-20 13:12] LABS: ALT (SGPT) < 10 U/L (0-50); AST (SGOT) 20 U/L (17-59); Albumin 3.4 g/dl (3.5-5.0); Alkaline Phosphatase 105 U/L (38-126); Blood Urea Nitrogen 25 mg/dl (9-20); Calcium 9.1 mg/dl (8.4-10.2); Carbon Dioxide 26 mmol/L (22-30); Chloride 107 mmol/L (98-107); Glucose 81 mg/dl (70-99); HDL Cholesterol 62 mg/dl; LDL Cholesterol, Calculated 69 mg/dl; Sodium 138 mmol/L (135-145); Total Bilirubin 0.4 mg/dl (0.2-1.3); Total Cholesterol 161 mg/dl (50-199); Total Protein 5.9 g/dl (6.3-8.2); Triglyceride 152 mg/dl (10-149); Very Low Density Lipoprotein 30 mg/dl (0-30); eGFR > 60.00
[2024-04-20 13:28] LABS: Free T4 0.89 ng/dl (0.78-2.19)
[2024-04-20 13:42] LABS: TSH 2.75 uIU/ml (0.47-4.68)
== END ==
LOC: OLABN 11:34
PROVIDERS: ATTENDING PHYSICIAN Internal Medicine Geriatric Medicine
DX: G20.C Parkinsonism, unspecified (principal); D72.829 Elevated white blood cell count, unspecified; I10 Essential (primary) hypertension
CPT/HCPCS: 36415; 80053; 80061; 84439; 84443; 85025

== ENCOUNTER → 2024-05-11 18:00 | Outpatient (REF) | payer MEDICARE, OTHER, SELFPAY ==
[2024-05-12 11:50] LABS: Urine Albumin Trace (Neg - Trace); Urine Bilirubin Negative (Negative); Urine Character Very Cloudy (Clear); Urine Color Yellow; Urine Glucose Negative (Negative); Urine Ketone Trace (Negative); Urine Leukocyte Negative (Negative); Urine Nitrite Negative (Negative); Urine Occult Blood Negative (Negative); Urine Specific Gravity 1.025 (<1.030); Urine Urobilinogen Negative (Neg - 1+)
== END ==
LOC: OLABN 18:00
PROVIDERS: ATTENDING PHYSICIAN Internal Medicine Geriatric Medicine
DX: R35.0 Frequency of micturition (principal)
CPT/HCPCS: 81003; 87086

== ENCOUNTER → 2024-07-20 11:06 | Outpatient (REF) | payer MEDICARE, OTHER, SELFPAY ==
[2024-07-20 11:57] LABS: % Basophils 0.3 % (0-2); % Eosinophils 3.4 % (0-6); % Immature Granulocytes 1.2 % (0-0.5); % Lymphocytes 20.6 % (20.5-51.1); % Monocytes 6.9 % (1.7-9.3); % Neutrophils 67.6 % (42.2-75.2); Absolute Eosinophils 0.3 10^3/uL (0-0.7); Absolute Immature Granulocytes 0.1 10^3/uL (0-0.05); Absolute Lymphocytes 2.1 10^3/uL (1.2-3.4); Absolute Monocytes 0.7 10^3/uL (0.1-0.6); Absolute Neutrophils 6.8 10^3/uL (1.4-6.5); Hematocrit 38.5 % (39.0-52.0); Hemoglobin 13.4 g/dL (13.0-18.0); Mean Corp Hgb Conc. 34.8 g/dL (33.0-37.0); Mean Corpuscular Hgb 33.8 pg (27.0-31.0); Mean Corpuscular Volume 97.2 fL (80.0-94.0); Mean Platelet Volume 12.3 fL (7.4-10.4); Nucleated Red Blood Cells % 0 % (-); Platelet Count 136 10^3/uL (130-400); Red Blood Cell Count 3.96 10^6/uL (4.70-6.10); White Blood Cell Count 10.1 10^3/uL (4.8-10.8)
== END ==
LOC: OLABN 11:06
PROVIDERS: ATTENDING PHYSICIAN Internal Medicine Geriatric Medicine
DX: R05.9 Cough, unspecified (principal)
CPT/HCPCS: 36415; 85025

== ENCOUNTER → 2024-08-18 09:40 | Outpatient (REF) | payer MEDICARE, OTHER, SELFPAY ==
[2024-08-18 10:57] LABS: Vitamin D, 25-OH*** 27.8 ng/mL (30-80)
[2024-08-18 13:43] LABS: Glycohemoglobin (HgbA1c) 5.2 % (4.0-5.6)
== END ==
LOC: OLABN 09:40
PROVIDERS: ATTENDING PHYSICIAN Internal Medicine Geriatric Medicine
DX: E55.9 Vitamin D deficiency, unspecified (principal); F06.0 Psychotic disorder with hallucinations due to known physiological condition; R73.03 Prediabetes
CPT/HCPCS: 36415; 82306; 83036

== ENCOUNTER → 2024-08-21 19:00 | Outpatient (REF) | payer MEDICARE, OTHER, SELFPAY ==
[2024-08-22 15:11] LABS: Urine Albumin Trace (Neg - Trace); Urine Bilirubin Negative (Negative); Urine Character Very Cloudy (Clear); Urine Color Yellow; Urine Glucose Negative (Negative); Urine Ketone Trace (Negative); Urine Leukocyte Negative (Negative); Urine Nitrite Negative (Negative); Urine Occult Blood Negative (Negative); Urine Specific Gravity 1.025 (<1.030); Urine Urobilinogen 1+ (Neg - 1+)
== END ==
LOC: OLABN 19:00
PROVIDERS: ATTENDING PHYSICIAN Internal Medicine Geriatric Medicine
DX: R35.0 Frequency of micturition (principal)
CPT/HCPCS: 81003; 87086

== ENCOUNTER → 2024-09-15 08:46 | Outpatient (REF) | payer MEDICARE, OTHER, SELFPAY ==
[2024-09-16 09:47] LABS: Urine Albumin 1+ (Neg - Trace); Urine Bilirubin 1+ (Negative); Urine Character Slightly Cloudy (Clear); Urine Color Yellow; Urine Glucose Negative (Negative); Urine Ketone 1+ (Negative); Urine Leukocyte 2+ (Negative); Urine Nitrite Negative (Negative); Urine Occult Blood Trace (Negative); Urine Urobilinogen 3+ (Neg - 1+)
[2024-09-16 10:41] LABS: Urine Squamous Cell 0-2 /LPF (Few)
[2024-09-16 10:42] LABS: Urine Bacteria Many (Negative); Urine White Cell 50-60 /HPF (0-5)
== END ==
LOC: CLAB 08:46
PROVIDERS: ATTENDING PHYSICIAN Internal Medicine Geriatric Medicine
DX: R82.90 Unspecified abnormal findings in urine (principal)
CPT/HCPCS: 36415; 81003; 81015; 87077; 87086

== ENCOUNTER → 2024-10-03 13:52 | Outpatient (REF) | payer MEDICARE, OTHER, SELFPAY | LOC: OLABN 13:52 | PROVIDERS: ATTENDING PHYSICIAN Internal Medicine Geriatric Medicine | DX: R09.89 Other specified symptoms and signs involving the circulatory and respiratory systems (principal) | CPT/HCPCS: 87502 ==

== ENCOUNTER → 2025-01-28 12:42 | Outpatient (REF) | payer MEDICARE, OTHER, SELFPAY ==
[2025-01-29 12:59] LABS: Urine Albumin 2+ (Neg - Trace); Urine Bilirubin Negative (Negative); Urine Character Cloudy (Clear); Urine Color Yellow; Urine Glucose Negative (Negative); Urine Ketone Negative (Negative); Urine Leukocyte 3+ (Negative); Urine Nitrite Negative (Negative); Urine Occult Blood 4+ (Negative); Urine Urobilinogen Negative (Neg - 1+)
[2025-01-29 14:51] LABS: Urine Amorphous Seen; Urine Squamous Cell 0-2 /LPF (Few)
[2025-01-29 14:52] LABS: Urine Bacteria Many (Negative); Urine White Cell >100 /HPF (0-5)
== END ==
LOC: OLABN 12:42
PROVIDERS: ATTENDING PHYSICIAN Internal Medicine Geriatric Medicine
DX: R35.0 Frequency of micturition (principal)
CPT/HCPCS: 81003; 81015; 87077; 87086

== ENCOUNTER → 2025-03-01 10:51 | Outpatient (REF) | payer MEDICARE, OTHER, SELFPAY ==
[2025-03-01 13:45] LABS: Vitamin D, 25-OH*** 30.5 ng/mL (30-80)
== END ==
LOC: OLABN 10:51
PROVIDERS: ATTENDING PHYSICIAN Internal Medicine Geriatric Medicine
DX: E55.9 Vitamin D deficiency, unspecified (principal)
CPT/HCPCS: 36415; 82306

== ENCOUNTER → 2025-04-01 05:00 | Outpatient (REF) | payer MEDICARE, OTHER, SELFPAY ==
[2025-04-01 14:22] LABS: Urine Character Mucus (Clear)
[2025-04-01 14:53] LABS: Urine Red Blood Cell 26-30 /HPF (0-2); Urine Squamous Cell 0-2 /LPF (Few); Urine White Cell 26-30 /HPF (0-5)
== END ==
LOC: OLABN 05:00
PROVIDERS: ATTENDING PHYSICIAN Internal Medicine Geriatric Medicine
DX: R35.0 Frequency of micturition (principal)
CPT/HCPCS: 81003; 81015; 87077; 87086; 87186

== ENCOUNTER → 2025-04-26 10:24 | Outpatient (REF) | payer MEDICARE, OTHER, SELFPAY ==
[2025-04-26 11:53] LABS: ALT (SGPT) < 10 U/L (0-50); AST (SGOT) 15 U/L (17-59); Albumin 3.3 g/dl (3.5-5.0); Alkaline Phosphatase 103 U/L (38-126); Blood Urea Nitrogen 22 mg/dl (9-20); Calcium 8.9 mg/dl (8.4-10.2); Carbon Dioxide 24 mmol/L (22-30); Chloride 110 mmol/L (98-107); Glucose 79 mg/dl (70-99); HDL Cholesterol 59 mg/dl; LDL Cholesterol, Calculated 59 mg/dl; Potassium 4.0 mmol/L (3.5-5.1); Sodium 137 mmol/L (135-145); Total Protein 5.8 g/dl (6.3-8.2); Very Low Density Lipoprotein 18 mg/dl (0-30); eGFR > 60.00
[2025-04-26 11:55] LABS: Hematocrit 32.3 % (39.0-52.0); Hemoglobin 10.8 g/dL (13.0-18.0); Mean Corp Hgb Conc. 33.4 g/dL (33.0-37.0); Mean Corpuscular Volume 99.1 fL (80.0-94.0); Platelet Count 148 10^3/uL (130-400); Red Cell Dist. Width 14.7 % (11.5-14.5)
[2025-04-26 12:21] LABS: TSH 4.82 uIU/ml (0.47-4.68)
== END ==
LOC: OLABN 10:24
PROVIDERS: ATTENDING PHYSICIAN Internal Medicine Geriatric Medicine
DX: I10 Essential (primary) hypertension (principal); N40.0 Benign prostatic hyperplasia without lower urinary tract symptoms; E78.5 Hyperlipidemia, unspecified
CPT/HCPCS: 36415; 80053; 80061; 84439; 84443; 85027

== ENCOUNTER → 2025-05-03 09:59 | Outpatient (REF) | payer MEDICARE, OTHER, SELFPAY ==
[2025-05-03 11:54] LABS: TSH 4.04 uIU/ml (0.47-4.68)
== END ==
LOC: OLABN 09:59
PROVIDERS: ATTENDING PHYSICIAN Internal Medicine Geriatric Medicine
DX: N40.0 Benign prostatic hyperplasia without lower urinary tract symptoms (principal); F39 Unspecified mood [affective] disorder
CPT/HCPCS: 36415; 84443

== ENCOUNTER → 2025-06-05 16:26 | Outpatient (REF) | payer MEDICARE, OTHER, SELFPAY ==
[2025-06-05 17:02] LABS: Urine Character Clear (Clear)
[2025-06-05 17:15] LABS: Urine Squamous Cell 0-2 /LPF (Few)
[2025-06-05 17:16] LABS: Urine Red Blood Cell 0-2 /HPF (0-2); Urine White Cell >100 /HPF (0-5)
== END ==
LOC: OLABN 16:26
PROVIDERS: ATTENDING PHYSICIAN Internal Medicine Geriatric Medicine
DX: R30.0 Dysuria (principal)
CPT/HCPCS: 81003; 81015

== ENCOUNTER → 2025-06-08 11:17 | Outpatient (REF) | payer MEDICARE, OTHER, SELFPAY ==
[2025-06-08 12:20] LABS: HDL Cholesterol 70 mg/dl; LDL Cholesterol, Calculated 53 mg/dl; Very Low Density Lipoprotein 22 mg/dl (0-30)
== END ==
LOC: OLABN 11:17
PROVIDERS: ATTENDING PHYSICIAN Internal Medicine Geriatric Medicine
DX: E78.5 Hyperlipidemia, unspecified (principal)
CPT/HCPCS: 36415; 80061

== ENCOUNTER → 2025-06-21 09:59 | Outpatient (REF) | payer MEDICARE, OTHER, SELFPAY ==
[2025-06-21 11:00] LABS: Urine Character Clear (Clear)
[2025-06-21 11:49] LABS: Urine Red Blood Cell 0-2 /HPF (0-2)
[2025-06-21 11:50] LABS: Urine White Cell 16-20 /HPF (0-5)
== END ==
LOC: OLABN 09:59
PROVIDERS: ATTENDING PHYSICIAN Internal Medicine Geriatric Medicine
DX: R35.0 Frequency of micturition (principal)
CPT/HCPCS: 81003; 81015; 87086

== ENCOUNTER → 2025-07-26 05:00 | Outpatient (REF) | payer MEDICARE, OTHER, SELFPAY ==
[2025-07-27 14:08] LABS: Urine Character Clear (Clear)
[2025-07-27 14:40] LABS: Urine White Cell 26-30 /HPF (0-5)
== END ==
LOC: OLABN 05:00
PROVIDERS: ATTENDING PHYSICIAN Internal Medicine Geriatric Medicine
DX: R35.0 Frequency of micturition (principal)
CPT/HCPCS: 81003; 81015; 87086; 87147

== ENCOUNTER → 2025-08-30 11:22 | Outpatient (REF) | payer MEDICARE, OTHER, SELFPAY ==
[2025-08-30 12:36] LABS: Vitamin D, 25-OH*** 23.5 ng/mL (30-80)
[2025-08-30 12:49] LABS: TSH 4.26 uIU/ml (0.47-4.68)
== END ==
LOC: OLABN 11:22
PROVIDERS: ATTENDING PHYSICIAN Internal Medicine Geriatric Medicine
DX: E55.9 Vitamin D deficiency, unspecified (principal); E11.59 Type 2 diabetes mellitus with other circulatory complications
CPT/HCPCS: 36415; 82306; 84439; 84443